=== PATIENT | male | born 1955 | race Caucasian/White ===

== ENCOUNTER → 2024-01-03 09:09 | Outpatient (REF) | payer MEDICARE, BC, SELFPAY ==
[2024-01-03 15:28] LABS: Free T3 3.94 pg/ml (2.77-5.27); Free T4 1.13 ng/dl (0.78-2.19)
[2024-01-03 15:42] LABS: TSH 1.74 uIU/ml (0.47-4.68)
[2024-01-05 11:57] LABS: Thyroglobulin Antibodies <0.9 IU/mL (0.0-4.0)
[2024-01-05 18:02] LABS: Total T3 (Sendout) 127 ng/dL (80-200)
[2024-01-05 18:18] LABS: TSH Receptor Antibody <1.10 IU/L (<=1.75)
[2024-01-07 02:30] LABS: Thyroid Stim. Immunoglobulin <0.10 IU/L (<=0.54)
== END ==
LOC: HWLAB 09:09
PROVIDERS: ATTENDING PHYSICIAN Physician Assistant; FAMILY PHYSICIAN Physician Assistant
DX: E04.2 Nontoxic multinodular goiter (principal)
CPT/HCPCS: 36415; 83520; 84439; 84443; 84445; 84480; 84481; 86376; 86800